=== PATIENT | male | born 1955 | race Caucasian/White ===

== ENCOUNTER 2016-12-04 22:06 | Inpatient (IN) | payer MEDICARE ==
[~2016-12-04] VITALS: Ht 170.2 cm; Wt 72.3 kg
--- NOTE | ~2016-12-04 | DS ---
PATIENT'S NAME: NOEL ISAACS [facility] AGE: 60 Y [address] ROOM: [place] [address] LOCATION: [facility] ADMIT DATE: 12/05/2016 Discharge Summary DISCHARGE DATE: 12/08/2016 FAMILY PHYSICIAN: Louie Villalobos MD ATTENDING PHYSICIAN: Chapito Santo PRIMARY DIAGNOSES: 1. Intracranial intra cerebral bleed which includes right subdural hematoma and subarachnoid hemorrhage. 2. Seizure. 3. Acute delirium. 4. Alcohol dependence with behavioral disturbance without withdrawal symptoms. 5. Electrolyte imbalance. 6. Acute hypoxic respiratory failure. CHRONIC CONDITIONS: Include essential hypertension. PRINCIPAL PROCEDURES: Done for the patient, none was indicated LABORATORY AND DIAGNOSTIC STUDIES: On admission, WBC was 8.3, was stable throughout the hospital stay at 7.2 upon discharge. H and H on admission was 8.6/ 27.1, was stable throughout the hospital stay. Prior to discharge was 8.1/25.8, platelet on admission was 180, was stable. Prior to discharge was 142. Sodium on admission was 134, prior to discharge was 140. Potassium on admission was 4.0, prior to discharge was 3.2, but was repleted prior to leaving. Bicarb was 20 on admission, prior to discharge was 27. Creatinine on admission was 0.7, prior to discharge was 1.0. BUN was stable throughout the hospital stay. Liver function test: AST was 40, ALT was 41, alkaline phosphatase was 104, was stable throughout the hospital stay. Magnesium on admission was 1.6, prior to discharge was 1.4, and he did receive magnesium with double dose p.o. MICROBIOLOGY: None was indicated. RADIOLOGY DATA: CTA head and neck reported as stable intracranial hemorrhage compared with last evening, no aneurysm. Chest x-ray, had no vascular congestion or confluent parenchymal infiltrate, scarring, and pleural thickening at the bases. Past thoracic trauma with old rib fractures and repeat CT head, repeat CT is reported as stable. The intracranial hemorrhage is stable. HOSPITAL COURSE: For history of present, illness, please take a look at the H and P which was done by Dr. Sanot. The patient was admitted to Neurotrauma Unit, was put on the CIWA/detox pathway; however, did not require Ativan as PATIENT'S NAME: NOEL ISAACS [facility] AGE: 60 Y [address] ROOM: [id number] [place], [place] [address] LOCATION: [facility] ADMIT DATE: 12/05/2016 Discharge Summary DISCHARGE DATE: 12/08/2016 FAMILY PHYSICIAN: Louie Villalobos MD ATTENDING PHYSICIAN: Chapito Santo the patient was not in active alcohol withdrawal. However, by the want ad clerk of his first day of his hospital stay, Rapid Response was called as the patient had developed witnessed generalized seizure which was followed with periods of postictal confusion. At that point in time, he was started on Keppra which helped to control the seizures and did not have any more seizures throughout his hospital stay. The night following the seizure, he did also develop some delirium with confusion and restlessness and trying to get out of bed. So he was put on one-to-one and his confusion and restlessness was controlled with Zyprexa. By the next day of his hospital stay, the patient was calm, was comfortable, though with intermittent periods of confusion. He started the physical therapy, though his gait was not the greatest. He did also get a Neurosurgical Consult for the intracranial bleed. Management per Neurosurgery was conservative with monitoring the intracranial bleed with the CT of the head, which remained stable. The patient continued to make good clinical progress. His delirium had resolved by the third day of the hospital stay not requiring Zyprexa or any other chemical restrain. He was also ambulating with Physical Therapy, though gait was pretty unsteady. He did not have any active withdrawal symptoms, and on the day of discharge, vital signs were stable and was discharged to the swing bed. MEDICATIONS ON DISCHARGE: Included, 1. Xanax 1 mg p.o. at bedtime. 2. Norvasc 5 mg p.o. daily. 3. Lipitor 40 mg p.o. daily. 4. Coreg 25 mg p.o. daily. 5. Folic acid 1 mg p.o. daily. 6. Protonix 40 mg p.o. daily before breakfast. 7. Potassium 20 mEq daily, dose change. 8. Keppra 500 mg p.o. twice daily, new medication. 9. Mag ox 400 mg three times daily, dose change. 10. Multivitamin one tablet p.o. daily. 11. Thiamine 100 mg p.o. daily, new medication. 12. Tylenol 650 mg p.o. q.6 hours p.r.n. 13. Sotalol 80 mg p.o. daily. 14. Trazodone 150 mg p.o. at bedtime. 15. Nitrostat 0.4 mg sublingual every 5 minutes. 16. Ambien 10 mg p.o. at bedtime. 17. Carboxymethylcellulose one drop ophthalmic as needed. DIANA WAYNE MD ODO/nahomyl PATIENT'S NAME: NOEL ISAACS [facility] AGE: 60 Y [address] ROOM: [address] [address] LOCATION: [facility] ADMIT DATE: 12/05/2016 Discharge Summary DISCHARGE DATE: 12/08/2016 FAMILY PHYSICIAN: Louie Villalobos MD ATTENDING PHYSICIAN: Chapito Santo /[id number] P d: 12/08/16 2249 t: 12/17/16 1008, DISCHARGE SUMMARY
--- NOTE | ~2016-12-04 | HP ---
PATIENT'S NAME: NOEL ISAACS [facility] AGE: 60 Y [address] ROOM: [place] [address] LOCATION: [facility] ADMIT DATE: 12/04/2016 History & Physical DISCHARGE DATE: FAMILY PHYSICIAN: PHYSICIAN, UNKNOWN ATTENDING PHYSICIAN: Chapito Santo DATE OF SERVICE: CHIEF COMPLAINT: Subarachnoid hemorrhage and subdural hematoma in the setting of fall at home. HISTORY OF PRESENTING ILLNESS: This 60-year-old white male with previous history of alcohol dependence and coronary artery disease who was transferred to [facility] from [facility] in [place] after a fall, which occurred yesterday. He may have fallen more than once and does not actually recollect the event. It was apparently a ground level fall, which occurred inside his house. He struck the right-side of his head on at least one occasion suffering a laceration there. Today, because he was weak and dizzy, he sought medical assistance. He was taken to the emergency room in [place], where imaging studies revealed the presence of subarachnoid hemorrhage and subdural hematoma. Dr. Leung, neurosurgeon was consulted by telephone and it was requested that he be transferred here for definitive evaluation and management. I have been asked to admit him and provide medical management. On his arrival here, he complains of headache pain, which he rates at 2 to 3/10. It is fairly constant in nature. He denies associated dizziness or nausea and no blurred vision or double vision. He has not had any difficulties with chewing or swallowing and he did eat earlier today. He denies any significant chest pain. No shortness of breath. No recent palpitations or orthopnea. He denies any abdominal pain. He has been stooling normally. Denies noticing any blood in his stools or black tarry stools. No urinary complaints or any other associated physical or constitutional complaints. ALLERGIES: NUBAIN CAUSES UPSET STOMACH. ILLNESSES: 1. Alcohol dependence. 2. Coronary artery disease. 3. Essential hypertension. 4. Hyperlipidemia. 5. Hepatitis C, posttreatment. PATIENT'S NAME: NOEL ISAACS [facility] AGE: 60 Y [address] ROOM: [place] [address] LOCATION: [facility] ADMIT DATE: 12/04/2016 History & Physical DISCHARGE DATE: FAMILY PHYSICIAN: PHYSICIAN, UNKNOWN ATTENDING PHYSICIAN: Chapito Santo CURRENT MEDICATIONS: 1. Alprazolam 0.5 p.o. t.i.d. p.r.n. 2. Ambien 10 mg p.o. q.h.s. 3. Amlodipine 5 mg p.o. daily. 4. Aspirin 81 mg p.o. daily. 5. Atorvastatin 40 mg p.o. daily. 6. Carvedilol 25 mg p.o. b.i.d. 7. Nitrostat p.r.n. 8. Protonix 40 mg p.o. daily. 9. Plavix 75 mg p.o. daily. 10. Potassium 10 mEq p.o. daily. 11. Sotalol 80 mg p.o. b.i.d. 12. Trazodone 50 mg p.o. q.h.s. FAMILY HISTORY: Negative for heart attack or stroke. SOCIAL HISTORY: He is and lives in [place]. He does not smoke. He does have a past history of illicit drug use including marijuana, but has currently quit. He drinks 6-8 beers on a daily basis. He states he has never quit and has no intention to do so. REVIEW OF SYSTEMS: As per HPI. All other organ systems reviewed and are negative. OBJECTIVE: VITAL SIGNS: Temperature 97.3, pulse 80, respirations 16, blood pressure 130/74, and O2 sat 96% on room air. GENERAL: He is anxious, but cooperative, lying in bed, in no acute distress. SKIN: Supple, pink, warm, dry. There are innumerable abrasions, subcutaneous hemorrhages, minor scratches, and areas of excoriation over the face and upper extremities. No active bleeding. He has a wound over the right temporal region, which is intact. There is some eschar present. HEENT: Otherwise, normocephalic. He has got an obvious hematoma at the right frontoparietal area, but no other area of skin breach. No palpable skull deformity. Sclerae nonicteric. Pupils equal, round, and reactive to light and accommodation. Extraocular movements appear intact. Nasal turbinates normal. Oropharynx clear. Mucous membranes are pink and moist. NECK: Supple. No masses or adenopathy. No thyromegaly. No JVD. CHEST: Chest wall symmetrical. HEART: Regular without murmurs. LUNGS: Diminished, but clear bilaterally. No wheezes or crackles are heard. ABDOMEN: Soft, protuberant, and tympanitic. Mildly distended. There is ascitic fluid wave. PATIENT'S NAME: NOEL ISAACS [facility] AGE: 60 Y [address] ROOM: [place] [address] LOCATION: [facility] ADMIT DATE: 12/04/2016 History & Physical DISCHARGE DATE: FAMILY PHYSICIAN: PHYSICIAN, UNKNOWN ATTENDING PHYSICIAN: Chapito Santo AND RECTAL: Not done. EXTREMITIES: Display no clubbing, cyanosis, or edema. NEUROLOGICAL: Anxious, but no focal deficits. Cranial nerves 2 through 12 appear grossly intact. Sensation appears normal. Strength is 4 to 5/5 bilaterally in upper and lower extremities. DTRs 1 to 2+ brisk symmetrical. Gait is not observed. LABORATORY AND X-RAY DATA: None available. ASSESSMENT AND PLAN: 1. Subarachnoid hemorrhage with intraventricular parenchymal hemorrhage and subdural hematoma, status post fall (multiple). Currently, clinically stable. We will admit for observation care. Dr. Leung is already aware of the case and we will consult him for neurosurgical management. Expect continued conservative care. We will provide some supportive cares and clinical monitoring including neuro checks and consider some physical therapy, occupational therapy, depending on his clinical progress. 2. Essential hypertension. Currently, adequately controlled. We will try to maintain systolic blood pressure less than 153. 3. Alcohol dependence. He is high-risk for withdrawal. I placed him on CIWA pathway. We will monitor. Discussed alcohol treatment with him preliminarily and he expresses no desire at least for now. We will continue to educate and reinforce the need for alcohol cessation. 4. Coronary artery disease, clinically asymptomatic and stable. We will hold the Plavix and aspirin, but continue with statin therapy and beta- elle therapy. 5. Chronic hepatitis C as discussed above. The patient indicates that he has been treated. He appears to be clinically stable. We will await chemistries and liver transaminases and follow up on that when the results are known. I suspect that he has got a significant degree of alcoholic liver disease. We will hold off on any additional workup for now, but he may benefit from that on an outpatient basis. 6. Deep venous thrombosis prophylaxis. Pneumatic compression devices and mobilize as he is physically able. MD AJ ALANIS/july /[id number] D: [id number] T: [id number] HISTORY & PHYSICAL
--- NOTE | ~2016-12-04 | CON ---
PATIENT'S NAME: NOEL ISAACS [facility] AGE: 60 Y [address] ROOM: [address] [place], [place] [address] LOCATION: [facility] ADMIT DATE: 12/05/2016 Consultation DISCHARGE DATE: FAMILY PHYSICIAN: Louie Villalobos MD ATTENDING PHYSICIAN: Chapito Santo DATE OF CONSULTATION: 12/05/2016 REFERRING PHYSICIAN: ALISE BANDA MD CHIEF COMPLAINT: Traumatic brain injury, right frontal contusion, right acute subdural hematoma, post fall. HISTORY OF PRESENT ILLNESS: The patient is a 60-year-old male patient, who was diagnosed yesterday on noncontrast CT head to have right-sided acute subdural hematoma, traumatic subarachnoid hemorrhage, and right frontal contusion. The patient was seen at [facility] in [place]. The patient had a fall on December 03, 2016. Apparently, he fell from a standing position. He did not seek immediate medical attention. Later on, the patient was noticed to be weak and dizzy by his family. For that reason, the patient was taking to the hospital where a noncontrast CT head was done; and he was diagnosed with traumatic brain injury. I was contacted. I reviewed the imaging and recommended transferring the patient over for further investigations and management. The transferring physician indicated that the patient is known to have coronary artery disease, and had multiple cardiac stents, for which he is on aspirin and Plavix. Immediately, I instructed the transferring physician to control the blood pressure and keep the patient n.p.o. I also discussed the case with our hospitalist team and arrangements were made to admit the patient under the hospitalist here. I met the patient on the quintero. Just before I met the patient, I was called urgently to assess him due to acute onset seizure. It was witnessed by the professor of nursing. It lasted for less than a minute. The patient had difficulties maintaining his airway. Jaw thrust was performed and shortly afterward, the patient was able to spontaneously breathe and he maintained good oxygen saturation. The patient was given Keppra 500 mg IV by the hospitalist. When I assessed the patient after the seizure settled, the patient was complaining of mild headache. He denied weakness on his hands. He denied visual disturbances. He denied neck pain. PAST MEDICAL AND SURGICAL HISTORY: Alcohol dependence, coronary artery disease, hypertension, hyperlipidemia, hepatitis C. PATIENT'S NAME: NOEL ISAACS [facility] AGE: 60 Y [address] ROOM: [place] [address] LOCATION: [facility] ADMIT DATE: 12/05/2016 Consultation DISCHARGE DATE: FAMILY PHYSICIAN: Louie Villalobos MD ATTENDING PHYSICIAN: Chapito Santo MEDICATIONS: Listed in the patient's chart. Essentially, the patient is on aspirin and Plavix along with the other medications. ALLERGIES: LISTED IN THE PATIENT'S CHART. SOCIAL HISTORY: The patient denied smoking. He actively drinks alcohol. FAMILY HISTORY: Noncontributory to the patient's presentation. REVIEW OF SYSTEMS: All points review of systems were asked about. Pertinent positives were mentioned in HPI. PHYSICAL EXAMINATION: GENERAL: The patient was examined in the neuro trauma unit. He was comfortably lying in bed. He was cooperative and pleasant. HEAD: It showed right periorbital ecchymosis and forehead small lacerations. The pupils were 3 mm and reactive. NECK: No tenderness to palpation. Neck range of motion was painless. No palpable masses. LYMPHATIC: No cervical lymphadenopathy. RESPIRATORY: He was not in any respiratory distress. CARDIOVASCULAR: He had palpable pulses on the upper extremities. ABDOMEN: It was soft and nontender. MUSCULOSKELETAL: No evidence of muscle wasting on the upper extremities. BACK: Not done. GAIT: Not done. NEUROLOGIC: He was alert, oriented to himself and to the month. He followed 1-and 2-step commands. Pupils were 3 mm and reactive. Motor and sensory examination on the upper and lower extremities was unremarkable. He named 3/3 objects. INVESTIGATIONS: 1. Noncontrast CT head done on December 04, 2016 at [facility]. It showed evidence of acute right-sided subdural hematoma. The hematoma was causing mild mass effect on the ipsilateral brain. No evidence of midline shift. It also showed evidence of subarachnoid hemorrhage in the right sylvian fissure and the basal cisterns. It also showed evidence of a small contusion involving the anterior aspect of the right frontal lobe with no significant mass effect. It also showed evidence of significant PATIENT'S NAME: NOEL ISAACS [facility] AGE: 60 Y [address] ROOM: [place] [address] LOCATION: [facility] ADMIT DATE: 12/05/2016 Consultation DISCHARGE DATE: FAMILY PHYSICIAN: Louie Villalobos MD ATTENDING PHYSICIAN: Chapito Santo global brain atrophy. 2. Noncontrast CT head done on December 05, 2016, which I personally reviewed and compared to the previous scan. It showed stable appearance of the right subdural hematoma, right frontal contusion and the subarachnoid hemorrhage. 3. CT angiogram done on December 05, 2016 which I personally reviewed. That was negative for intracranial aneurysms. It showed evidence of a small infundibulum involving the origin of the left posterior communicating artery. IMPRESSION AND PLAN: A 60-year-old male patient who is known to have alcohol dependence, had a fall on December 03 that resulted in acute right-sided subdural hematoma, traumatic subarachnoid hemorrhage, right frontal contusion. Earlier today, the patient had generalized seizure which is most likely related to alcohol dependence or the frontal contusion. The seizure subtle spontaneously. He is currently receiving Keppra 500 mg b.i.d. His repeat scan was stable. PLAN: 1. Observation in the neuro trauma unit under the hospitalist. 2. Blood pressure control, keep the systolic blood pressure less than 150. 3. Repeat noncontrast CT head on December 07, 2016. 4. Hold aspirin and Plavix, still further notice. I reviewed the imaging with the admitting physician. I also reviewed the plan with the admitting physician and the patient himself. No indication for surgical intervention at this point. There is potential conversion of the acute subdural hematoma into chronic subdural hematoma which may expand and require surgical intervention. In the meantime, the patient will be clinically observed and after discharge, he will be monitored in the office. It was pleasure taking care of this patient and thanks for having us involved. MD KELLEY GEE/modl /[id number] CC: Chapito Santo MD PATIENT'S NAME: NOEL ISAACS [facility] AGE: 60 Y [address] ROOM: [address] [address] LOCATION: [facility] ADMIT DATE: 12/05/2016 Consultation DISCHARGE DATE: FAMILY PHYSICIAN: Louie Villalobos MD ATTENDING PHYSICIAN: Chapito Santo PA-C Benjamin Stephenson, MD d: 12/05/16 1532 t: 12/06/16 1641, CONSULTATION REPORT
[2016-12-05 00:18] LABS: BASOPHIL % 0.2 %; HEMOGLOBIN 8.6 g/dL (12.0-17.0); IMMATURE GRANULOCYTE % 0.5 %; LYMPHOCYTE # 1.1 K/uL (0.8-4.0); LYMPHOCYTE % 13.4 %; MCH 26.3 pg (27.0-34.0); MCHC 31.9 gm/dL (32.0-36.5); MCV 82.6 fl (83.0-98.0); MONOCYTE # 0.9 K/uL (0.0-1.0); MONOCYTE % 10.6 %; NEUTROPHIL # (ANC) 6.3 K/uL (1.4-9.0); NEUTROPHIL % 75.3 %; NRBC % 0 /100WBC (0-0.00); PLATELET COUNT 180 K/uL (150-450); RBC 3.27 M/uL (4.00-6.00); RDW-CV 16.5 % (11.9-14.6); WBC 8.3 K/uL (4.0-11.0)
[2016-12-05 00:29] LABS: PROTIME 10.9 SECONDS (9.6-11.1); PTT 25 SECONDS (25-32)
[2016-12-05 00:34] LABS: ALBUMIN 3.7 gm/dL (3.5-5.0); ALK PHOS 104 IU/L (33-138); ALT 41 IU/L (12-78); AST 40 IU/L (10-40); BLOOD UREA NITROGEN 4 mg/dL (6-24); CALCIUM 8.8 mg/dL (8.5-10.5); CHLORIDE 100 mMol/L (96-110); CO2 20 mMol/L (22-32); CREATININE 0.7 mg/dL (0.6-1.3); ESTIMATED GFR (MDRD EQUATION) > 60; SODIUM 134 mMol/L (135-145); TOTAL BILIRUBIN 0.4 mg/dL (0.0-1.5); TOTAL PROTEIN 8.2 g/dL (6.0-8.4)
--- NOTE | 2016-12-05 01:20 | NUR ---
Patient fell at home on 12/03/16 in [facility] and hit his head. Patient doesn't recall how it happened. Went to ER on 12/04/[address] was done to show subdural/subarachnoid bleeds. Patient was tranferred to [facility] for higher level of care. Patient arrived to [facility] at 2305. Medical history includes cardiac stents placed, CAD, hypercholesterolemia, Hepatitis C, melanoma, depression, and anxiety. Patient reports he drinks 6 beers per day and has frequent falls at home. Patient is resting comfortably at this time.
[2016-12-05 04:05] LABS: BASOPHIL % 0.2 %; HEMATOCRIT 26.1 % (37.0-53.0); HEMOGLOBIN 8.4 g/dL (12.0-17.0); IMMATURE GRANULOCYTE # 0.1 K/uL (0.0-0.3); IMMATURE GRANULOCYTE % 0.6 %; LYMPHOCYTE % 10.9 %; MCH 26.8 pg (27.0-34.0); MCHC 32.2 gm/dL (32.0-36.5); MCV 83.1 fl (83.0-98.0); MONOCYTE # 1.2 K/uL (0.0-1.0); MONOCYTE % 13.7 %; MPV 9.2 fl (9.4-12.4); NEUTROPHIL # (ANC) 6.7 K/uL (1.4-9.0); NEUTROPHIL % 74.6 %; NRBC % 0 /100WBC (0-0.00); PLATELET COUNT 161 K/uL (150-450); RBC 3.14 M/uL (4.00-6.00); RDW-CV 16.5 % (11.9-14.6)
[2016-12-05 04:26] LABS: BLOOD UREA NITROGEN 5 mg/dL (6-24); CALCIUM 8.8 mg/dL (8.5-10.5); CHLORIDE 99 mMol/L (96-110); CO2 22 mMol/L (22-32); CREATININE 0.7 mg/dL (0.6-1.3); ESTIMATED GFR (MDRD EQUATION) > 60; MAGNESIUM 1.6 mg/dL (1.3-2.6); PHOSPHORUS 2.1 mg/dL (2.5-4.9); SODIUM 135 mMol/L (135-145)
--- NOTE | 2016-12-05 06:58 | NUR ---
Significant Event: Patient is alert and oriented x 3. Forgetful. Equal strength throughout. PERRLA. Follows commands. Denies any numbness or tingling. Q2 hour neurochecks. VSS on room air. SBPs in the 150s-160s. To keep SBPs less than 150. Labetolol PRN given x 4, last at 0553. HRs in the 90s. Afebrile. Up with 1 assist and gait belt. Right forearm IV with NS running at 75 ml/hr. BM x 1 this shift. Voiding well. Tramadol given for headache last at 0402. On clear liquid diet. Patient is cooperative with cares. Follow up: Head CT this am
[2016-12-05] MEDS ORDERED: PROTONIX40 MG PO (09:30)
[2016-12-05] MEDS ORDERED: PLAVIX75 MG PO (09:30)
[2016-12-05] MEDS ORDERED: XANAX0.5 MG PO (09:31)
[2016-12-05] MEDS ORDERED: AMBIEN10 MG PO (09:31)
[2016-12-05] MEDS ORDERED: COREG25 MG PO (09:32)
[2016-12-05] MEDS ORDERED: DESYREL150 MG PO (09:32)
[2016-12-05] MEDS ORDERED: NORVASC5 MG PO (09:33)
[2016-12-05] MEDS ORDERED: K-TAB 10MEQ10 MEQ PO (09:34)
[2016-12-05] MEDS ORDERED: LIPITOR40 MG PO (09:35)
[2016-12-05] MEDS ORDERED: BETAPACE (GENER80 MG PO (09:35)
[2016-12-05] MEDS ORDERED: ASPIRIN LO-DOSE81 MG PO (09:35)
[2016-12-05] MEDS ORDERED: NITROSTAT0.4 MG SL (09:37)
[2016-12-05] MEDS ORDERED: REFRESH CONTACT12 ML OPHTH (09:38)
[2016-12-05 12:37] LABS: MAGNESIUM 1.8 mg/dL (1.3-2.6)
[2016-12-05 12:38] LABS: PHOSPHORUS 1.6 mg/dL (2.5-4.9)
--- NOTE | 2016-12-05 13:16 | NUR ---
Reviewed chart, pt had rapid response called to room this morning due to seizure and recovering so did not see him today, no family in room. I received a care management consult to talk with patient about alcohol treatment and found 2 outpt alcohol treatment counseling places in [place] if pt is interested, per his H&P is not interested in stopping his alcohol use but I will talk with him about it when more stable. I did get a call from [facility] in [facility], worker Radha Juarez called and asked for us to call when he is discharged home, her phone number is [phone] ext [phone].
--- NOTE | 2016-12-05 16:59 | NUR ---
Significant Event: Patient alert and oriented X 3. At times he does have difficulty remembering that he is in [place]. Room air. Q2 neuro's. Q2 vitals. Rapid response called at 0958 this morning for seizure activity after taking shower. Patient unresponsive and cyanotic and foaming from the mouth. Returned back to bed and jaw thrust to open airway. Patient placed in restraints w/1:1 for approximately 45 minutes for combativeness. Keppra given. Patient is now alert and oriented X 3. Can be impulsive. Bed and chair alarms in use. Do not leave alone in bathroom. IV to left posterior forearm with normal saline at 75 ml/hr and potassium phosphate infusing at 52 ml/hr for 5 hours. Patient has complained about headache through out shift. Tylenol given X 3, last given at 1531. Reassessment pain at a 0. Blood pressures to be kept below 150. Labetolol given X 3, last given at 0815. Hydrolozine X 1, last given at 0830. Lopressor given X 2, last given at 1534. Last blood pressure 129/71 at 1615. Up with 1 assist, gait belt. Valium was given at 1408. Pleasant and cooperative with cares. Follow up:
[2016-12-06 04:25] LABS: BASOPHIL % 0.3 %; EOSINOPHIL % 0.1 %; HEMOGLOBIN 8.5 g/dL (12.0-17.0); IMMATURE GRANULOCYTE % 0.4 %; LYMPHOCYTE # 1.1 K/uL (0.8-4.0); LYMPHOCYTE % 14.6 %; MCH 27.1 pg (27.0-34.0); MCHC 32.7 gm/dL (32.0-36.5); MCV 82.8 fl (83.0-98.0); MONOCYTE # 0.9 K/uL (0.0-1.0); MONOCYTE % 12.9 %; MPV 9.8 fl (9.4-12.4); NEUTROPHIL # (ANC) 5.2 K/uL (1.4-9.0); NEUTROPHIL % 71.7 %; NRBC % 0 /100WBC (0-0.00); PLATELET COUNT 142 K/uL (150-450); RBC 3.14 M/uL (4.00-6.00); RDW-CV 16.5 % (11.9-14.6); WBC 7.2 K/uL (4.0-11.0)
[2016-12-06 04:42] LABS: ANION GAP 12.7 (10.0-19.0); BLOOD UREA NITROGEN 3 mg/dL (6-24); CALCIUM 8.9 mg/dL (8.5-10.5); CHLORIDE 99 mMol/L (96-110); CO2 27 mMol/L (22-32); CREATININE 0.7 mg/dL (0.6-1.3); ESTIMATED GFR (MDRD EQUATION) > 60; PHOSPHORUS 1.9 mg/dL (2.5-4.9); POTASSIUM 2.7 mMol/L (3.7-5.1); SODIUM 136 mMol/L (135-145)
--- NOTE | 2016-12-06 07:23 | NUR ---
Significant Event: First & second assessment patient was alert and oriented x3. Third assessment patient started to become restless and agitated. Patient had then started to become impulsive and climbing out of bed. Patient became 1:1. NVS q2h. CIWA q4h. SR-ST/ to keep SBP less than 150- hydralazine and labetalol PRN. Room air. Liquid diet-takes pills whole with water. Last BM 12/05-active x4. 1-2a gb/walker. NS @ 75 in the L) post. FA. PO potassium given this AM. Patient is hep C postive-does have some scattered scabs and bruising. ETCO2 per policy for alcohol withdrawal. Follow up: Non contrast CT 12/07. 1:1 sitter.
[2016-12-06 11:54] LABS: ALBUMIN 3.1 gm/dL (3.5-5.0); TOTAL BILIRUBIN 0.5 mg/dL (0.0-1.5); TOTAL PROTEIN 6.9 g/dL (6.0-8.4)
--- NOTE | 2016-12-06 14:12 | NUR ---
Reviewed chart, pt agitated and confused last night and 1:1, today not agitated and resting quietly but per nurse still confused. On Detox pathway. Will follow and assist with dc planning, too soon to know needs. Does live alone but has been alert and oriented and ambulatory prior to today.
--- NOTE | 2016-12-06 16:17 | NUR ---
Received consult to start Swingbed referral. Pt on 1:1 last night, taken off this morning. Will start swingbed referral in the morning when pt off 1:1 care for 24 hours. Has PT/OT ordered.
--- NOTE | 2016-12-06 17:15 | NUR ---
Significant Event: patient was 1:1 until 1320 then changed to 15 minute checks. a/o x 3 and forgetful. pain to right eye area. denies numbness/tingling. equal strength throughout. No seizures since 12/05 aftn. tele with NSR. room air. voids per bathroom. incontinent at times. IV to left forearm saline locked. IV to left upper arm (power line) infusing NS at 50ml/hr. takes meds whole. Pupils are pinpoint and sluggish. Takes meds whole. SBP runs in 90s-110s this shift. Full liquid diet. will advance to regular in the morning. CT of head in morning. Discharge plan- swing bed when ready. Hepatitis positive. ETCO2 monitor at all times. CWA/Neuros/VS Q 4 hours. Takes meds whole.
[2016-12-07 04:08] LABS: HEMATOCRIT 22.8 % (37.0-53.0)
[2016-12-07 04:13] LABS: HEMOGLOBIN 7.1 g/dL (12.0-17.0)
[2016-12-07 04:24] LABS: ANION GAP 12.5 (10.0-19.0); BLOOD UREA NITROGEN 2 mg/dL (6-24); CALCIUM 8.1 mg/dL (8.5-10.5); CHLORIDE 111 mMol/L (96-110); CO2 23 mMol/L (22-32); CREATININE 0.7 mg/dL (0.6-1.3); ESTIMATED GFR (MDRD EQUATION) > 60; MAGNESIUM 1.8 mg/dL (1.3-2.6); PHOSPHORUS 3.1 mg/dL (2.5-4.9); POTASSIUM 3.5 mMol/L (3.7-5.1)
[2016-12-07 04:26] LABS: SODIUM 143 mMol/L (135-145)
--- NOTE | 2016-12-07 07:37 | NUR ---
Significant Event: Patient has been alert and oriented x3 the last two assessments. VSS. Did have a temp of 99.3 and GUTIERREZ- tylenol given. Denies N/T. No blurred vision. Sinus rhythm this shift with SBP's in the 110-130's ( keep SBP less than 150). Room air. Regular diet. Last BM 4/5- active x4. Takes pills whole with water. 1a gb/walker. Has been incont. this shift. PIV in right FA with NS at 75. Follow up: CT this AM.
--- NOTE | 2016-12-07 10:41 | NUR ---
Called [facility] in [facility] and left voicemail for swingbed coordinator Scarlet re: swingbed referral and ready today or tomorrow, waiting call back.
[2016-12-07 11:15] LABS: HEMATOCRIT 25.1 % (37.0-53.0)
[2016-12-07 11:25] LABS: HEMOGLOBIN 7.9 g/dL (12.0-17.0)
--- NOTE | 2016-12-07 12:09 | NUR ---
Talked with patient, agreeable to go to [facility], says his ex lives in [place] and thinks she can transport. Dr Ajit Villalobos is his doctor. Let him know I am waiting to hear back from [facility] Coordinator and will let him know. Talked with Scarlet at [facility] and Dr Villalobos not in the office today, she will look at information and call and see if physician will admit to [facility] in his absence. Will let me know. Faxed her referral to [phone]. Waiting to hear back.
--- NOTE | 2016-12-07 15:11 | NUR ---
Scarlet from [facility] Swingbed called and they can accept tomorrow. She called Dr Villalobos to accept and it will be Prashant Gastelum who accepts tomorrow, phone number to call her is [phone]. I put that number on chart for our doc to call. Nurse to nurse report is [phone] to nurses station and number to fax orders is [phone], put those numbers on chart as well. Talked with patient, he is agreeable to plan, he called ex and she cannot transport tomorrow and he does not have anyone to call so agreed to ambulance transport and I did tell him if insurance doesn't cover he would be responsible, okay with [facility] so I called Jeni, the comspec and set up ambulance transport for [address] Beyer and he will come up soon to do orders and call Prashant Gastelum. Called Dr Leung and let him know. Orders on chart.
--- NOTE | 2016-12-07 16:43 | NUR ---
Significant Event: a/o to person, month and year. does have difficulty recalling place. pain to frontal head. denies numbness/tingling. equal strength throughout. ambulates with gait belt and one assist. does use call light appropriately. takes meds whole. regular diet. pupils 2.0/sluggish. HGB 7.9 today and potassium 3.5. PO potassium administered. tele with NSR. Peripheral IV saline locked. Plan- transfer to [facility] bed per ambulance tomorrow.
--- NOTE | 2016-12-08 05:29 | NUR ---
Significant Event: Patient is alert and oriented to person and time. Follows commands. Denies n/t. GUTIERREZ has gradually increased throughout the night-tyenol given twice. Pupils are 2mm and sluggish. CIWA still in place-last score was 13- 5mg valium given. Forgetful. Sinus rhythm to sinus tach. HTN-keep SBP less than 150-see EMAR labetalol given twice. Room air. Regular diet-takes pills whole with pepsi or water. Last BM 12/07-active x4. 1A GB-can be impulsive when having to use the bathroom. HI/lo bed. Seizure precautions. Hep C positive. R) post FA SL'd. R) eye still has slight swelling. Follow up: Usha BA today by ambulance at 1030.
[2016-12-08 09:39] LABS: HEMATOCRIT 25.8 % (37.0-53.0); HEMOGLOBIN 8.1 g/dL (12.0-17.0)
[2016-12-08 09:52] LABS: ANION GAP 13.2 (10.0-19.0); BLOOD UREA NITROGEN 3 mg/dL (6-24); CALCIUM 8.8 mg/dL (8.5-10.5); CHLORIDE 103 mMol/L (96-110); CO2 27 mMol/L (22-32); ESTIMATED GFR (MDRD EQUATION) > 60; MAGNESIUM 1.4 mg/dL (1.3-2.6); POTASSIUM 3.2 mMol/L (3.7-5.1); SODIUM 140 mMol/L (135-145)
--- NOTE | 2016-12-08 13:12 | NUR ---
Patient transferred to [facility] at 1147. Report given to receiving facility.
== END 2016-12-08 11:47 | disposition swing bed (61) | DRG 85 ==
LOC: GNTU 22:06
PROVIDERS: Hospitalist; Neurological Surgery; ADMIT Family Medicine
DX: S06.5X1A Traumatic subdural hemorrhage with loss of consciousness of 30 minutes or less, initial encounter (principal); J96.01 Acute respiratory failure with hypoxia; S06.6X1A Traumatic subarachnoid hemorrhage with loss of consciousness of 30 minutes or less, initial encounter; F10.231 Alcohol dependence with withdrawal delirium; E87.8 Other disorders of electrolyte and fluid balance, not elsewhere classified; R56.9 Unspecified convulsions; B18.2 Chronic viral hepatitis C; E78.5 Hyperlipidemia, unspecified; F10.20 Alcohol dependence, uncomplicated; I25.10 Atherosclerotic heart disease of native coronary artery without angina pectoris; K70.9 Alcoholic liver disease, unspecified; W18.30XA Fall on same level, unspecified, initial encounter; Y92.019 Unspecified place in single-family (private) house as the place of occurrence of the external cause; I10 Essential (primary) hypertension
CPT/HCPCS: C1751; G0378; J0360; J1953; J3475; J7030; J7050; Q9967

== ENCOUNTER → 2016-12-08 | Outpatient (CLI) | payer MEDICARE ==
[~2016-12-08] MED LIST: AMBIEN10 MG PO; ASPIRIN LO-DOSE81 MG PO; BETAPACE (GENER80 MG PO; COREG25 MG PO; DESYREL150 MG PO; K-TAB 10MEQ10 MEQ PO; LIPITOR40 MG PO; NITROSTAT0.4 MG SL; NORVASC5 MG PO; PLAVIX75 MG PO; PROTONIX40 MG PO; REFRESH CONTACT12 ML OPHTH; XANAX0.5 MG PO
== END | disposition disaster alternative care site (69) ==
LOC: GAMB 11:55
DX: S06.6X0A Traumatic subarachnoid hemorrhage without loss of consciousness, initial encounter (principal); S06.5X0A Traumatic subdural hemorrhage without loss of consciousness, initial encounter; E78.5 Hyperlipidemia, unspecified; I10 Essential (primary) hypertension; Z79.82 Long term (current) use of aspirin; Z79.899 Other long term (current) drug therapy; W19.XXXA Unspecified fall, initial encounter
CPT/HCPCS: A0425; A0428

== ENCOUNTER 2016-12-18 12:30 | Inpatient (IN) | payer MEDICARE ==
[~2016-12-18] VITALS: Ht 167.6 cm; Wt 67.3 kg
--- NOTE | ~2016-12-18 | CON ---
PATIENT'S NAME: NOEL ISAACS [facility] AGE: 60 Y [address] ROOM: [address] [place], [place] [address] LOCATION: [facility] ADMIT DATE: 12/18/2016 Consultation DISCHARGE DATE: FAMILY PHYSICIAN: PHYSICIAN, UNKNOWN ATTENDING PHYSICIAN: ALISE LEUNG DATE OF CONSULTATION: 12/18/2016 REASON FOR CONSULTATION: Medical consult from Dr. Leung for medical management. CHIEF COMPLAINT: Headache and worsening of right subdural hematoma. HISTORY OF PRESENT ILLNESS: This is a 60-year-old male, who is an alcohol dependent, who was recently discharged from the service of hospitalist to the swing bed at [place]. Please check the details of the discharge summary which was done by Dr. Beyer for the hospital course. History was obtained from the patient who is not reliable as his story sometimes does not tally and he appears to be forgetful. He reports that he only spent about 2 days at the [place] swing bed after which he was discharged to home, and reports that immediately as he got home, he started drinking again, and after being drunk, he had a fall at home and fell on the left side of his head, and was taken into the ER at [place] where he was on admission for about 4 days and thereafter, he was discharged back home. He reported that three to four days after getting home, that while he was outside trying to see why his dogs are barking that he was tripped over by his dogs and he fell again hitting the right side of his head. He also reports that after he arrived home that he also had an unwitnessed seizure activity and woke up to find his bed all covered with blood and following this, he was taken in again to the ER at [place] and he could not remember what happened afterwards as the story lined was all mixed up. He complains of generalized headache, which is on and off. Lasts about 24 minutes and resolves spontaneously without taking medication. The patient could not really tell me reason why he is transferred here to [facility] to the service of Dr. Leung except that he was told that he needed a head doctor to help take care of his problem. He denies neck pain. Denies nausea or vomiting. Denies chest pain. Denies abdominal pain. Denies diarrhea or urinary symptoms. Under the H and P, please note that the patient has been reviewed by the primary doctor, Dr. Leung, who is actually planning for a bur hole sometime on for his subacute right subdural. REVIEW OF SYSYTEM: The 13 elements of review of system were asked and as documented in the H& P others are negative. PAST MEDICAL HISTORY: Includes: 1. Coronary artery disease, status post CABG and stent. PATIENT'S NAME: NOEL ISAACS [facility] AGE: 60 Y [address] ROOM: [id number] [place], [place] [address] LOCATION: [facility] ADMIT DATE: 12/18/2016 Consultation DISCHARGE DATE: FAMILY PHYSICIAN: PHYSICIAN, UNKNOWN ATTENDING PHYSICIAN: ALISE LEUNG 2. Paroxysmal atrial fibrillation. 3. Alcohol dependence. 4. Electrolyte imbalance. 5. Essential hypertension. 6. Dyslipidemia. 7. Hepatitis C post-treatment. PAST SURGICAL HISTORY: Includes: CABG and stent placement. SOCIAL HISTORY: Lives on his own. Stopped smoking about 20 years ago. Cannot recall how long he smoked for. Drinks alcohol, however, his last drink was about 2 weeks ago. Denies use of any illicit drugs. FAMILY HISTORY: He reports his mother is alive, she is in her 70s, has heart problem. Father in his late 60s or early 70s. PHYSICAL EXAMINATION: VITAL SIGNS: Temperature 97.5, pulse 63, respiratory rate 12, blood pressure 123/67, and oxygen saturation 98% on room air. GENERAL: Reveals a male who is alert, awake, and oriented x2. He is not in any form of respiratory distress or painful distress. NEUROLOGIC: Cranial nerves 2 through 12 are intact bilaterally. Sensory is intact bilaterally. Power is at least 4/5 in all the extremities. Sensory is intact. HEENT: Normocephalic and atraumatic. Pupils are pinpoint. Pharynx is normal. Mucosa is moist. Ears; no obvious ear discharge or drainage. NECK: Supple. No area of tenderness. No lymphadenopathy. CARDIOVASCULAR SYSTEM: Normal S1 and S2. Regular rate and rhythm. CHEST: Clear to auscultation bilaterally. ABDOMEN: Soft, nondistended. No area of tenderness. No palpable organomegaly. Positive bowel sounds. EXTREMITIES: There is no joint swelling or erythema or tenderness. SKIN: No rash or skin breakdown. LABORATORY DATA: Laboratories which were done at the referral hospital. Laboratories today; glucose 114, sodium 144, potassium 3.7, chloride 103, CO2 of 25, BUN 7, creatinine 0.78, AST 32, ALT 33, alkaline phosphatase 87, calcium 9.5, and albumin 4.2. Folate 16. WBC 7.5, platelets 467,000. CT of his head is reported as right cerebral subdural hematoma which appears subacute in nature, has increased in size with maximum thickness measuring 14 mm, previously 9 mm. New mild leftward midline shift measuring 5 mm. PATIENT'S NAME: NOEL ISAACS [facility] AGE: 60 Y [address] ROOM: [place] [address] LOCATION: [facility] ADMIT DATE: 12/18/2016 Consultation DISCHARGE DATE: FAMILY PHYSICIAN: PHYSICIAN, UNKNOWN ATTENDING PHYSICIAN: ALISE LEUNG ASSESSMENT AND PLAN: This is a 60-year-old male, who is admitted to service of Dr. Leung for worsening right subdural hematoma: 1. Alcohol dependence, present on admission. The patient reports he has not had a drink in about 2 weeks. However, we will still monitor for signs of alcohol withdrawal symptoms. We will give him some Ativan p.r.n. 2. Seizure disorder. We will continue the patient on Keppra and put on seizure precaution. 3. Right subdural hematoma with left midline shift. Management per primary team. Plan is to take the patient to the OR for a bur hole. 4. Coronary artery disease, status post coronary artery bypass grafting without angina, stable, present on admission. 5. Paroxysmal atrial fibrillation, in sinus rhythm. We will continue patient on his medication. 6. The line of management was explained to the patient who did not have any questions at this time. MD SALOMON ACOSTA/july /[id number] d: 12/18/165 t: 12/19/16 1639, CONSULTATION REPORT
--- NOTE | ~2016-12-18 | DS ---
PATIENT'S NAME: NOEL ISAACS [facility] AGE: 60 Y [address] ROOM: [address] [address] LOCATION: T ADMIT DATE: 12/19/2016 Discharge Summary DISCHARGE DATE: 12/22/2016 FAMILY PHYSICIAN: , Unknown ATTENDING PHYSICIAN: Cem Leung ADMISSION MAIN DIAGNOSES: Right-sided subacute/chronic subdural hematoma with mass effect. DISCHARGE MAIN DIAGNOSIS: Right-sided subacute/chronic subdural hematoma with mass effect. PROCEDURES DURING ADMISSION: Right-sided julita holes and drainage of subacute/chronic subdural hematoma. COMPLICATIONS DURING ADMISSION: None. DISCHARGE INSTRUCTIONS AND FOLLOWUP APPOINTMENTS: 1. The patient will be transferred to [facility] to continue inpatient physical therapy and occupational therapy. 2. Myself, on January 22, 2017. The patient requires noncontrast CT head prior to the appointment. 3. No aspirin, no Plavix, no Lovenox till authorized by me. 4. Remove wound soledad on January 02, 2017, by the family physician. 5. Call my office for any concerns. 6. Keep the wound open to air. MEDICATIONS ON DISCHARGE: 1. Resume all pre-admission medications except the subcutaneous Lovenox. 2. No aspirin, no Plavix, no Lovenox till authorized by Dr. Leung. HOSPITAL COURSE: The patient is a 60-year-old male patient, who was readmitted to the hospital on December 19, 2016, after a noncontrast CT head showed a large right-sided subacute/chronic subdural hematoma. The patient was initially admitted in early December with traumatic brain injury, small size, right acute subdural hematoma, and traumatic subarachnoid hemorrhage. The patient was treated conservatively and was transferred to [facility] for inpatient rehab. Over there, the patient was noticed to have increasing confusion and memory difficulties. Noncontrast CT head was done and that showed a large right-sided subacute/chronic subdural hematoma. The patient was transferred over. On December 20, 2016, the patient underwent the above-mentioned surgery without any complications. Postoperatively, the patient did very well. He had no new neurologic deficits. His confusion significantly improved. He also had a noncontrast CT head done postoperatively and that showed satisfactory evacuation of the hematoma and no PATIENT'S NAME: NOEL ISAACS [facility] AGE: 60 Y [address] ROOM: [address] [address] LOCATION: [facility] ADMIT DATE: 12/19/2016 Discharge Summary DISCHARGE DATE: 12/22/2016 FAMILY PHYSICIAN: Physician, Unknown ATTENDING PHYSICIAN: Cem Leung complications. The patient was mobilized by Physical Therapy and Occupational Therapy. It was felt that this patient would benefit from inpatient physical therapy and occupational therapy. Given that, arrangements were made to transfer the patient to [facility] to continue that. On the day of discharge, the patient was examined. He remained neurologically intact. The wound was healing very well. I reviewed the discharge instructions with the patient, and based on that, the patient was transferred to [facility]. CEM LEUNG MD AB/modl /[id number] CC: Louie Villalobos MD d: 12/23/16 0205 t: 12/24/16 1024, DISCHARGE SUMMARY
--- NOTE | ~2016-12-18 | HP ---
PATIENT'S NAME: NOEL ISAACS [facility] AGE: 60 Y [address] ROOM: [address] [place], [place] [address] LOCATION: [facility] ADMIT DATE: 12/18/2016 History & Physical DISCHARGE DATE: FAMILY PHYSICIAN: PHYSICIAN, UNKNOWN ATTENDING PHYSICIAN: ALISE BANDA DATE OF SERVICE: 12/18/2016 CHIEF COMPLAINT: Large right-sided subacute/chronic subdural hematoma with mass effect. HISTORY OF PRESENT ILLNESS: The patient is a 60-year-old male patient, who was initially admitted on December 05, 2016 with traumatic brain injury. The patient had a fall from a standing position prior to the admission. His CT scan showed evidence of right-sided acute subdural hematoma with traumatic subarachnoid hemorrhage. The patient was on aspirin and Plavix prior to the admission. He was treated conservatively. He had repeat noncontrast CT head during admission, and that showed no change in the size of the hematoma. The patient was then transferred to [facility] for inpatient physiotherapy and occupational therapy. He initially did very well. Recently, the patient was noticed to have increasing memory difficulties, and confusion. A noncontrast CT head was done today and that showed evidence of a large right-sided subacute/chronic subdural hematoma with more mass effect and midline shift. I was contacted by his family physician. I reviewed the images and recommended transferring the patient over for observation and potentially surgical intervention. I was notified that the patient was receiving Lovenox subcutaneously for DVT prophylaxis at [facility]. I recommended discontinuing that. I met the patient and his on the neuro trauma unit. The indicated that she has noticed worsening of his memory recently. The patient himself denied weakness on his hands, numbness on his hands, weakness on his feet. He reported moderate right-sided headache. PHYSICAL EXAMINATION: GENERAL: The patient was cooperative and pleasant. RESPIRATORY: He was not in any respiratory distress. NEUROLOGIC: He was alert and oriented. Cranial nerves examination was normal. The pupils were 2 mm and reactive. Face was symmetric. He followed 1 and 2 step commands. Motor examination was normal on the upper and lower extremities. INVESTIGATIONS: Noncontrast CT head done on December 18, 2016 which I personally reviewed. It PATIENT'S NAME: NOEL ISAACS [facility] AGE: 60 Y [address] ROOM: [address] [place], [place] [address] LOCATION: [facility] ADMIT DATE: 12/18/2016 History & Physical DISCHARGE DATE: FAMILY PHYSICIAN: PHYSICIAN, UNKNOWN ATTENDING PHYSICIAN: ALISE BANDA showed evidence of a large right-sided subacute/chronic subdural hematoma with significant mass effect on the ipsilateral cerebral hemisphere as well as right to left midline shift. No evidence of new acute hemorrhage. IMPRESSION AND PLAN: A 60-year-old male patient who has right-sided subacute/chronic subdural hematoma with mass effect. The patient is obviously symptomatic from the hematoma. The patient was receiving Lovenox at [facility]. PLAN: 1. Admission to the hospital. 2. Hospitalist consultation. 3. I recommended right-sided julita holes and drainage of subdural hematoma. The surgery scheduled on December 20, 2016. I discussed the imaging findings with the patient and his . I discussed the natural history of subdural hematomas. Given the size of the hematoma and the fact that the patient is asymptomatic, I recommended the above mentioned surgery to the patient and his . I discussed the operation itself, the benefits, and all the risks associated with it. I also discussed hospital stay and postoperative recovery. The patient and his were interested in proceeding with the surgery, so the patient is scheduled on December 20, 2016. It was pleasure taking care of this patient and thanks for having us involved. MD KELLEY GEE/modl /[id number] CC: Louie Villalobos MD D: [id number] T: 109 HISTORY & PHYSICAL
--- NOTE | ~2016-12-18 | OR ---
PATIENT'S NAME: NOEL ISAACS [facility] AGE: 60 Y [address] ROOM: [place] [address] LOCATION: [facility] ADMIT DATE: 12/19/2016 OR/Procedure Report DISCHARGE DATE: FAMILY PHYSICIAN: PHYSICIAN, UNKNOWN ATTENDING PHYSICIAN: CEM LEUNG SURGEON: Cem Leung MD PROPAGATOR LABORER: DATE OF PROCEDURE: 12/20/2016 ANESTHESIOLOGIST: Jj Moreau MD. ANESTHESIA: General. COMPLICATIONS: None. ESTIMATED BLOOD LOSS: Minimal. PREOPERATIVE DIAGNOSIS: Right side subacute/chronic subdural hematoma with mass effect. POSTOPERATIVE DIAGNOSIS: Right side subacute/chronic subdural hematoma with mass effect. PROCEDURE PERFORMED: Right sided julita holes and drainage of chronic subdural hematoma. CLINICAL HISTORY: The patient is a 60-year-old male patient, who initially had a fall from a standing position on 12/05/2016 that resulted in mild to moderate size acute subdural hematoma and traumatic subarachnoid hemorrhage. The patient was admitted to our hospital and treated conservatively. His repeat noncontrast CT head was stable and did not show any change in the size of the hematoma. The patient was then transferred to [facility] for inpatient rehab. Over there, the patient was noticed to have increasing confusion and memory loss. Repeat noncontrast CT head done on 12/18/2016 showed evidence of large right side subacute/chronic subdural hematoma with more mass effect. The patient was transferred over. I recommended the above mentioned surgery to the patient and his family. I discussed the risks and benefits associated with it. They were interested in proceeding with the surgery, so the patient was brought in for the surgery. PROCEDURE IN DETAIL: The patient was seen in the preoperative care unit and the correct side was marked. Then, he was transferred to the main operating theater, was given general anesthetic, and underwent endotracheal intubation without complications. Preoperative antibiotics were given. Calf compressors were used throughout the procedure. He was positioned supine on the table and PATIENT'S NAME: NOEL ISAACS [facility] AGE: 60 Y [address] ROOM: [place] [address] LOCATION: [facility] ADMIT DATE: 12/19/2016 OR/Procedure Report DISCHARGE DATE: FAMILY PHYSICIAN: PHYSICIAN, UNKNOWN ATTENDING PHYSICIAN: CEM LEUNG all his joints and bony prominences were securely padded. The patient's head was placed on foam and turned to the left side. I then marked 2 incisions, 1 anterior and 1 posterior along the superior temporal line. The hair overlying the incisions was clipped off. Surgical site was prepped and draped. The proposed skin incision was infiltrated with 0.25% Marcaine with epinephrine. Skin was sharply opened down to the bone and retractor was placed in. Then, a high-speed Midas Godfrey drill was brought in and 2 julita holes were fashioned down to the dura. The bone was waxed and the dura was coagulated. Then, the dura was incised in a cruciate fashion and the dural leaflets were further coagulated. Immediately, subacute/chronic subdural fluid escaped under moderate pressure. The subdural space was copiously irrigated till the return was clear. I was satisfied with the evacuation. Then, I proceeded to closure. Hemostasis was achieved using bipolar. Then, the skin was closed in layers with 2-0 Vicryl to the galea and soledad to the skin. Sterile dressing was applied. At the end of the operation, the instrument and sponge counts were correct. The patient tolerated the operation without complications. MD KELLEY GEE/modl /[id number] CC: Louie Villalobos MD d: 12/20/16 0922 t: 12/20/16 1441, OPERATIVE SUMMARY
--- NOTE | 2016-12-18 14:55 | NUR ---
Pt is 60 y/o male admit for chronic subdural bleed for . Pt alert but slow to respond and poor historian at times. Resides at home by himself. Today he came from a swingbed in [place] and has been there for the past week. Prior to that he was a patient here for subdural post fall. Hx htn,hyperchol, CAD,stents x 17,urgency/frequency,hayfever,crohns disease,ETOH abuse-cause of falls,hepatitis C,pancreatitis,cirrhosis,diarrhea,fibromyalgia,urgency/ frequency,melanoma. Pt's ex- is at bedside. Pt's son is POA. Allergy to nubain. Red and yellow bracelets on.
[2016-12-18 15:16] LABS: BASOPHIL % 0.7 %; EOSINOPHIL # 0.1 K/uL (0.0-0.5); EOSINOPHIL % 1.6 %; HEMOGLOBIN 8.2 g/dL (12.0-17.0); IMMATURE GRANULOCYTE % 0.4 %; LYMPHOCYTE % 17.4 %; MCH 25.6 pg (27.0-34.0); MCHC 30.4 gm/dL (32.0-36.5); MCV 84.4 fl (83.0-98.0); MONOCYTE # 0.6 K/uL (0.0-1.0); MONOCYTE % 9.8 %; MPV 9.1 fl (9.4-12.4); NEUTROPHIL % 70.1 %; NRBC % 0 /100WBC (0-0.00); RDW-CV 15.1 % (11.9-14.6); WBC 5.7 K/uL (4.0-11.0)
[2016-12-18 15:21] LABS: PLATELET COUNT 406 K/uL (150-450)
[2016-12-18 15:26] LABS: INR - (THERAPEUTIC) 1.08 (0.92-1.07); PROTIME 11.4 SECONDS (9.8-11.4); PTT 26 SECONDS (25-32)
[2016-12-18 15:33] LABS: ALBUMIN 3.4 gm/dL (3.5-5.0); ALK PHOS 105 IU/L (33-138); ALT 34 IU/L (12-78); ANION GAP 9.6 (10.0-19.0); AST 26 IU/L (10-40); BLOOD UREA NITROGEN 7 mg/dL (6-24); CALCIUM 9.3 mg/dL (8.5-10.5); CHLORIDE 106 mMol/L (96-110); CO2 27 mMol/L (22-32); CREATININE 0.8 mg/dL (0.6-1.3); ESTIMATED GFR (MDRD EQUATION) > 60; POTASSIUM 3.6 mMol/L (3.7-5.1); SODIUM 139 mMol/L (135-145); TOTAL PROTEIN 8.3 g/dL (6.0-8.4)
[2016-12-18 15:36] LABS: TOTAL BILIRUBIN 0.3 mg/dL (0.0-1.5)
--- NOTE | 2016-12-18 15:47 | NUR ---
Significant Event: Patient admitted to [facility] at 1355 from [facility]. Patient alert and oriented X3. Impaired recent memory. L) sided weakness. Moves everything spontaneously. Follows commands. VSS. Sinus bradycardia. Room air with sats in the mid 90s. LS clear and diminished. BS active X4. No BM this shift. Voids per urinal. R)upper forearm SLL. 1 assist with gaitbelt. Impulsive at times. Pleasant and cooperative with cares. Follow up: surgery ; npo saturday night; permits need signed
--- NOTE | 2016-12-19 03:58 | NUR ---
Significant Event: a/ox3. forgetful. impulsive. zyprexa given x1. moves all extremities spontaneously and to command. denies numbness and tingling. left side slightly weaker. complained of a headache early in shift - no complaints after tylenol given at 1900. up 1 assist gait belt. iv to right forearm running normal saline at 75ml/hr. sinus shayan. vss on room air. Follow up: keep sbp <150. surgery - npo saturday night, NS at 75ml/hr when npo.
[2016-12-19 04:01] LABS: BASOPHIL # 0.1 K/uL (0.0-0.2); BASOPHIL % 0.8 %; EOSINOPHIL # 0.1 K/uL (0.0-0.5); EOSINOPHIL % 2.1 %; HEMATOCRIT 27.1 % (37.0-53.0); HEMOGLOBIN 8.3 g/dL (12.0-17.0); IMMATURE GRANULOCYTE % 0.3 %; LYMPHOCYTE # 1.2 K/uL (0.8-4.0); LYMPHOCYTE % 18.9 %; MCH 25.7 pg (27.0-34.0); MCHC 30.6 gm/dL (32.0-36.5); MCV 83.9 fl (83.0-98.0); MONOCYTE # 0.6 K/uL (0.0-1.0); MPV 8.9 fl (9.4-12.4); NEUTROPHIL # (ANC) 4.2 K/uL (1.4-9.0); NEUTROPHIL % 67.9 %; NRBC % 0 /100WBC (0-0.00); PLATELET COUNT 421 K/uL (150-450); RBC 3.23 M/uL (4.00-6.00); RDW-CV 15.3 % (11.9-14.6); WBC 6.2 K/uL (4.0-11.0)
[2016-12-19 04:19] LABS: ALBUMIN 3.5 gm/dL (3.5-5.0); ALK PHOS 101 IU/L (33-138); ALT 32 IU/L (12-78); ANION GAP 11.4 (10.0-19.0); AST 26 IU/L (10-40); BLOOD UREA NITROGEN 7 mg/dL (6-24); CALCIUM 9.1 mg/dL (8.5-10.5); CHLORIDE 107 mMol/L (96-110); CO2 25 mMol/L (22-32); CREATININE 0.8 mg/dL (0.6-1.3); ESTIMATED GFR (MDRD EQUATION) > 60; MAGNESIUM 1.9 mg/dL (1.8-2.6); PHOSPHORUS 3.2 mg/dL (2.5-4.9); POTASSIUM 3.4 mMol/L (3.7-5.1); SODIUM 140 mMol/L (135-145); TOTAL BILIRUBIN 0.3 mg/dL (0.0-1.5); TOTAL PROTEIN 8.3 g/dL (6.0-8.4)
--- NOTE | 2016-12-19 17:23 | NUR ---
Significant Event: a/o to person and year. needs cueing to month and place. needs cueing to why he is in the hospital. c/o headache to right temperal forehead. PRN tylenol for pain management. Denies numbness/tingling. PERRLA. tele with sinus arrythmia. room air. voids per urinal/bathroom. ambulates with gait belt and one assist. does not use call light. ultra high fall risk. plan- NPO after midnight for right julita holes and drainage of subdural hematoma. consents signed and on chart.
[2016-12-20 04:29] LABS: BASOPHIL # 0.1 K/uL (0.0-0.2); BASOPHIL % 0.7 %; EOSINOPHIL # 0.2 K/uL (0.0-0.5); HEMATOCRIT 26.5 % (37.0-53.0); HEMOGLOBIN 8.1 g/dL (12.0-17.0); IMMATURE GRANULOCYTE % 0.3 %; LYMPHOCYTE # 1.8 K/uL (0.8-4.0); LYMPHOCYTE % 24.9 %; MCH 25.9 pg (27.0-34.0); MCHC 30.6 gm/dL (32.0-36.5); MCV 84.7 fl (83.0-98.0); MONOCYTE # 0.9 K/uL (0.0-1.0); MONOCYTE % 11.7 %; MPV 9.4 fl (9.4-12.4); NEUTROPHIL # (ANC) 4.4 K/uL (1.4-9.0); NEUTROPHIL % 60.4 %; NRBC % 0 /100WBC (0-0.00); PLATELET COUNT 400 K/uL (150-450); RBC 3.13 M/uL (4.00-6.00); RDW-CV 15.6 % (11.9-14.6); WBC 7.3 K/uL (4.0-11.0)
--- NOTE | 2016-12-20 04:30 | NUR ---
Significant Event: ALERT TO SELF AND MONTH/YEAR. OCCASIONALLY ALERT TO PLACE. MOVES ALL EXTREMITIES SPONTANEOUSLY AND TO COMMAND. DENIES NUMBNESS AND TINGLING. PERRLA. LUNGS CLEAR ON ROOM AIR. SINUS RHYTHM. SBPS IN 130S-140S. IMPULSIVE. TYLENOL GIVE X1 FOR HEADACHE. IV TO LEFT AC SALINE LOCKED. IV TO RIGHT FOREARM RUNNING NS AT 75/HR. NPO AT MIDNIGHT. SURGERY THIS AM. BATH COMPLETE. Follow up:
[2016-12-20 04:52] LABS: ALBUMIN 3.2 gm/dL (3.5-5.0); ALK PHOS 101 IU/L (33-138); ALT 26 IU/L (12-78); ANION GAP 11.4 (10.0-19.0); AST 20 IU/L (10-40); BLOOD UREA NITROGEN 8 mg/dL (6-24); CHLORIDE 111 mMol/L (96-110); CO2 22 mMol/L (22-32); CREATININE 0.8 mg/dL (0.6-1.3); ESTIMATED GFR (MDRD EQUATION) > 60; MAGNESIUM 1.7 mg/dL (1.8-2.6); POTASSIUM 3.4 mMol/L (3.7-5.1); SODIUM 141 mMol/L (135-145); TOTAL BILIRUBIN 0.3 mg/dL (0.0-1.5); TOTAL PROTEIN 7.9 g/dL (6.0-8.4)
--- NOTE | 2016-12-20 17:44 | NUR ---
Significant Event: Patient returned to [facility] at 0955 s/p right burrhole and drainage of SDH. a/o to person and year. at times is oriented to month and hospital but does not remember in [place] hardly ever. replies usually is in [place] or [facility]. denies numbness/tingling. equal strength throughout. DSG to surgical site to head C/D/I. does have c/o occipital headache and rec'd PRN dilaudid and PRN tylenol. bedrest x 24 hours. may have HOB up to 20 degrees. bedrest will end at 0800 tomorrow. VSS. room air. tele with NSR. IV to right forearm infusing NS at 75ml/hr. voids per urinal. advanced from clear liquid to regular diet. discharge plan- return to [facility] bed when ready.
--- NOTE | 2016-12-21 05:10 | NUR ---
Significant Event:Patient alert to self and , and age. Forgetful. Thinks he is in [place], [place]. Denies N/T. Moves all extremities spontaneously and to comman Lungs clear on room air. Bowel sounds active. No bm this shift. Voids per urinal without difficulty. Regular diet. Bedrest until 0800 today. HOB can be raised to 20 degrees. PIV to left AC running NS at 75 ml/hr. Takes meds whole. Occipital headache at times, tylenol given last at 2321, relief noted. VSS. Follow up: Back to [facility] bed when ready?
--- NOTE | 2016-12-21 10:27 | NUR ---
Introduced self and CM role to [place]. He tells me that he lives at home alone in [place], [place] and it is his ultimate goal to return there. I let him know that I had reviewed his charting and according to Dr. Leung, it was recommended that he go back to the [facility] upon dismissal from us. [place] was a bit discouraged by this news as "I was hoping to get to go straight home from here instead of going back there but if I have to go then I guess I will." I let him know that I was going to fax an update to [facility] to see if/when they could accept. I also let him know that he would need to most likely have family come and pick him up to take him to the [facility] so if he could start working on that, that would be great. No other questions, needs or concerns from him. I called and left a VM with Scarlet at [facility] and also faxed a referral over to her so that her and her team could review it to see when they would be able to accept back. CM to continue to follow and assist.
--- NOTE | 2016-12-21 13:09 | NUR ---
Significant Event:PT IS ALERT TO PERSON AND . PUPIL ARE EQUAL AND BRISK. NO C/O NUMBNESS, TINGLING, DOUBLE OR BLURRED VISION. CLEAR AND DIMINISHED LUNG SOUNDS ON RA. ACTIVE BS. NO C/O PAIN. UP WITH 1A GB WALKER. IV X2 SL'D. LAST BM 12/17 Follow up:[facility]
--- NOTE | 2016-12-22 05:10 | NUR ---
Significant Event: The Patient is Alert and Oriented x1-self. On occassion he knows the month. Forgetful. VSS. On room air. Up with 1 Assist, gaitbelt. Moves all extremities spontaneously and to command. Equal and strong strength. PIV to the Left AC saline locked. Gave Tylenol for pain at 2033. Bruising to his arms. Dressing to the right side of his head dry and intact with shadow drainage noted. Left Forehead puncture site open to air. Follow up: [facility] today at 11
--- NOTE | 2016-12-22 12:19 | NUR ---
ORDERS RECEIVED TO DISCHARGE PATIENT HOME. TELE MONITOR, AND IV DC'D. DISCHARGE PACKET TO [facility]. REPORT CALLED TO [facility].
== END 2016-12-22 11:32 | disposition swing bed (61) | DRG 25 ==
LOC: GNTU 13:47
PROVIDERS: Hospitalist; Nurse Practitioner Family; ADMIT Neurological Surgery
PROC: 00940ZZ Drainage of Intracranial Subdural Space, Open Approach (ICD-10-PCS; principal; 2016-12-20)
DX: S06.5X0A Traumatic subdural hemorrhage without loss of consciousness, initial encounter (principal); G93.5 Compression of brain; E87.8 Other disorders of electrolyte and fluid balance, not elsewhere classified; I48.0 Paroxysmal atrial fibrillation; G40.909 Epilepsy, unspecified, not intractable, without status epilepticus; I10 Essential (primary) hypertension; E78.5 Hyperlipidemia, unspecified; S06.6X0A Traumatic subarachnoid hemorrhage without loss of consciousness, initial encounter; F10.20 Alcohol dependence, uncomplicated; I25.10 Atherosclerotic heart disease of native coronary artery without angina pectoris; Z95.1 Presence of aortocoronary bypass graft; W18.30XA Fall on same level, unspecified, initial encounter; Z79.01 Long term (current) use of anticoagulants; Z87.891 Personal history of nicotine dependence
CPT/HCPCS: J0690; J1100; J2405; J7030